=== PATIENT | female | born 1965 | race Hispanic/Latino ===

== ENCOUNTER → 2019-11-15 | Outpatient (CLI) | payer BC | END | disposition home or self-care (01) | LOC: OIH 10:37 | PROVIDERS: ATTEND Internal Medicine | DX: M19.042 Primary osteoarthritis, left hand (principal); M19.041 Primary osteoarthritis, right hand; M19.072 Primary osteoarthritis, left ankle and foot; M19.071 Primary osteoarthritis, right ankle and foot; M06.4 Inflammatory polyarthropathy | CPT/HCPCS: 73130; 73630 ==

== ENCOUNTER 2021-03-11 06:33 | Day surgery (SDC) | payer BC ==
[2021-03-06 11:14] LABS: BASOPHILS % (AUTO) 0.2 % (0.0-5.0); EOSINOPHILS % (AUTO) 0.4 % (0.0-8.0); HEMATOCRIT 40.6 % (36-48); LYMPHOCYTES % (AUTO) 15.2 % (21.0-51.0); MEAN CORPUSCULAR HEMOGLOBIN 26.4 pg (27.0-33.0); MEAN CORPUSCULAR HGB CONC 32.3 g/dL (32.0-36.0); MEAN CORPUSCULAR VOLUME 81.7 fL (79-99); MONOCYTES % (AUTO) 5.8 % (3.0-13.0); NEUTROPHILS % (AUTO) 77.8 % (40.0-77.0); PLATELET COUNT (AUTO) 367 K/uL (130-400); RED BLOOD CELL COUNT(AUTO) 4.97 MIL/uL (4.00-5.50); RED CELL DISTRIBUTION WIDTH 14.1 % (11.0-15.5); WHITE BLOOD COUNT (AUTO) 12.1 K/uL (4.8-10.8)
[2021-03-06 11:31] LABS: CREATININE 0.7 mg/dL (0.5-1.5)
[2021-03-10 14:47] VITALS: BP 175/72
[~2021-03-11] VITALS: Ht 165.1 cm; Wt 108.1 kg
[2021-03-11] VITALS (18 sets, daily range): BP systolic 130–165; BP diastolic 56–88
[~2021-03-11 06:33] MED LIST: AMLO-257 PO; LEVO150C4 PO; LOSA100T58 PO; OMEP40CA21 PO
[2021-03-11] MEDS: CEFAZOLIN SODIUM 1 GM VIAL IVP SCH ×2 (07:00→08:45)
[2021-03-11] MEDS ORDERED: LACTATED RINGERS 1000ML 1,000 ML IV ONE (07:10)
[2021-03-11] MEDS ORDERED: LIDOCAINE PF 100MG/5ML (2%) SYRINGE 5ML ONE (07:46)
[2021-03-11] MEDS ORDERED: PROPOFOL 10 MG/ML 20ML VIAL IV ONE (07:47)
[2021-03-11] MEDS ORDERED: FENTANYL CITRATE PF 50 MCG/1 ML 2ML VIAL ONE (07:47)
[2021-03-11] MEDS ORDERED: KETOROLAC 30MG VIAL (30MG/ML) ONE (09:07)
[2021-03-11] MEDS ORDERED: MEPERIDINE-PF 25 MG/ML SYG ONE ×3 (09:07→09:45)
[2021-03-11] MEDS ORDERED: ONDANSETRON 4MG INJ ONE (09:07)
[2021-03-11] MEDS ORDERED: CEPH500B PO (09:26)
[2021-03-11] MEDS ORDERED: IBUP-2070 PO (09:26)
[2021-03-11] MEDS ORDERED: ACET1TAB25 PO (09:26)
== END 2021-03-11 11:15 | disposition home or self-care (01) ==
LOC: DAH 06:33
PROVIDERS: ATTEND Orthopaedic Surgery
DX: M23.321 Other meniscus derangements, posterior horn of medial meniscus, right knee (principal); Z20.822 Contact with and (suspected) exposure to COVID-19; M23.341 Other meniscus derangements, anterior horn of lateral meniscus, right knee; G89.29 Other chronic pain; I10 Essential (primary) hypertension; K21.9 Gastro-esophageal reflux disease without esophagitis; E03.9 Hypothyroidism, unspecified; E11.9 Type 2 diabetes mellitus without complications; Z90.710 Acquired absence of both cervix and uterus; Z90.49 Acquired absence of other specified parts of digestive tract; Z98.51 Tubal ligation status; Z79.899 Other long term (current) drug therapy; Z79.890 Hormone replacement therapy; Z83.3 Family history of diabetes mellitus; Z82.49 Family history of ischemic heart disease and other diseases of the circulatory system; Z82.61 Family history of arthritis
CPT/HCPCS: 29880; 36415; 80048; 80051; 85025; 87635; A4215; A4221; A4222; A4223; A4606; A4649 ×2; A4930; A5120; A6223; C9803; J0690; J1885; J2001; J2175 ×3; J2405; J2704; J3010; J7030; J7120 ×2